=== PATIENT | female | born 1980 | race Caucasian/White ===

== ENCOUNTER 2020-11-04 13:09 | Emergency (ER) | payer SELFPAY ==
[~2020-11-04] VITALS: Ht 160 cm; Wt 86.4 kg
--- NOTE | 2020-11-04 13:22 | NUR ---
CALLED FOR PT. PT NOT IN LOBBY
[2020-11-04 14:18] LABS: BASOPHILS % (AUTO) 0 % (0-1); EOSINOPHILS % (AUTO) 0 % (1-7); LYMPHOCYTES % (AUTO) 13 % (22-44); MEAN CORPUSCULAR HEMOGLOBIN 30.9 pg (27.0-34.8); MEAN CORPUSCULAR HGB CONC 33.3 g/dL (32.4-35.8); MEAN PLATELET VOLUME 7.5 fL (7.4-10.4); MONOCYTES % (AUTO) 6 % (2-9); NEUTROPHILS % (AUTO) 81 % (42-75); PLATELET COUNT 288 x10^3/uL (130-400); RED BLOOD COUNT 4.29 x10^6/uL (3.82-5.3)
[2020-11-04 14:30] LABS: ALBUMIN 3.7 g/dL (3.4-5.0); ANION GAP 7 mmol/L (5-15); CALCIUM 9.2 mg/dL (8.5-10.1); CHLORIDE 109 mmol/L (98-107)
[2020-11-04 14:50] LABS: ALANINE AMINOTRANSFERASE 20 U/L (12-78); ALKALINE PHOSPHATASE 44 U/L (45-117); BILIRUBIN,TOTAL 0.3 mg/dL (0.2-1.0); CREATININE 0.94 mg/dL (0.55-1.02); TOTAL PROTEIN 7.4 g/dL (6.4-8.2)
[2020-11-04 15:04] LABS: MD SCAN
--- NOTE | 2020-11-04 16:45 | NUR ---
manager intranet: pt from lobby to room [id number]
[2020-11-04 16:56] VITALS: BP 138/81
[2020-11-04 17:46] LABS: MICROSCOPIC AUTO
--- NOTE | 2020-11-04 17:48 | NUR ---
LAB CALLED AT THIS TIME TO CHECK ON STATUS OF UA, PER LAB "HE IS WORKING ON IT NOW, SHOULDN'T BE MUCH LONGER".
== END 2020-11-04 18:33 | disposition home or self-care (01) ==
LOC: ED 18:21
DX: O26.891 Other specified pregnancy related conditions, first trimester (principal); M54.5 Low back pain; R35.0 Frequency of micturition; Z3A.01 Less than 8 weeks gestation of pregnancy
CPT/HCPCS: 36415; 76801; 80053; 81001; 84702; 85025; 86901; 87086; 99284